=== PATIENT | female | born 1995 | race African-American/Black ===

== ENCOUNTER 2018-10-28 22:25 | Emergency (ER) | payer BC, OTHER ==
[~2018-10-28] VITALS: Ht 157.5 cm; Wt 79.4 kg
[~2018-10-28 22:25] MED LIST: ALBU2.5V7 INH; DOCU-144 PO; LACT10SO66 PO; ONDA4TAB5 PO; OXYC-130 PO
[2018-10-28 22:35] VITALS: BP_SYST 134
[2018-10-28 23:12] VITALS: BP_SYST 134
== END 2018-10-28 23:12 | disposition home or self-care (01) ==
LOC: SED 22:25
DX: L03.113 Cellulitis of right upper limb (principal); R21 Rash and other nonspecific skin eruption; R03.0 Elevated blood-pressure reading, without diagnosis of hypertension; J45.909 Unspecified asthma, uncomplicated; Z79.899 Other long term (current) drug therapy
CPT/HCPCS: 99283